=== PATIENT | female | born 1960 | race Asian ===

== ENCOUNTER 2018-01-30 11:48 | Emergency (ER) | payer OTHER, SELFPAY ==
[2018-01-30 11:54] VITALS: BP 147/84; PULSE 80; RESP 14; TEMP 36.7; O2SAT 100
--- NOTE | 2018-01-30 12:16 | ED.FEMALEGU ---
HPI - Female Genitourinary <LISA Rodriguez-BC - Last Filed: 01/30/18 14:20> General Chief complaint: Urogenital-Female Stated complaint: States UTI Time Seen by Provider: 01/30/18 12:04 Source: patient Mode of arrival: ambulatory Limitations: no limitations History of Present Illness HPI Narrative: Patient is a 57-year-old female nonsmoker with a history of hypertension hypothyroid who presents with a chief complaint of UTI symptoms. She states that she had urinary urgency frequency dysuria starting yesterday. She denies any fevers but complains of nausea. She denies any vomiting or diarrhea. She denies any abdominal pain vaginal discharge or STI concerns. She states she has a history of UTIs and took an old Macrobid from a prescription she did not finish. 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 She states she drank 3 gal of water with cranberry juice. Related Data Home Medications Medication Instructions Recorded Confirmed levothyroxine [Synthroid] 150 mcg PO QAM #0 06/04/16 aspirin 81 mg PO QDAY #0 01/02/17 lisinopril 5 mg PO QDAY #0 01/02/17 Previous Rx's Medication Instructions Recorded ciprofloxacin HCl [Cipro] 500 mg PO BID #14 tab 01/02/17 Allergies Allergy/AdvReac Type Severity Reaction Status Date / Time No Known Drug Allergies Allergy Verified 01/30/18 11:56 Review of Systems <LISA Rodriguez- - Last Filed: 01/30/18 14:20> Review of Systems GENERAL: Denies chills, fatigue, malaise, fever, sweats. HEENT: Denies sinus pain, ear pain, sore throat, difficulty swallowing, dizziness. RESPIRATORY: Denies dyspnea, cough, wheezing, hemoptysis, sputum. CARDIOVASCULAR: Denies chest pain, palpitations, orthopnea, edema, GASTROINTESTINAL: Denies nausea, vomiting, abdominal pain, diarrhea, constipation, melena. : See HPI MUSCULOSKELETAL: denies weakness, joint pain, or bony pain SKIN: Denies rash, skin lesions, or other NEUROLOGIC: Denies weakness, headache, numbness, change in speech, confusion, seizures, incoordination. PSYCHIATRIC: No concerning psychosocial issues. 12 point review of systems is negative except for those stated above Exam <TAMARA Rodriguez - Last Filed: 01/30/18 14:20> Narrative Exam Narrative: GENERAL: This is a well-nourished, well-developed patient, in no acute distress HEAD: Atraumatic. Normocephalic. No temporal or scalp tenderness. EYES: Pupils equal round and reactive. Extraocular motions intact. No scleral icterus. No injection or drainage. ENT: Nose without bleeding, purulent drainage or septal hematoma. Throat without erythema, tonsillar hypertrophy or exudate. Uvula midline. Airway patent. NECK: Trachea midline. No JVD or lymphadenopathy. Supple, nontender, no meningeal signs. CARDIOVASCULAR: Regular rate and rhythm without murmurs, gallops, or rubs. RESPIRATORY: Clear to auscultation. Breath sounds equal bilaterally. No wheezes, rales, or rhonchi. No cough on exam. No increased respiratory effort. GASTROINTESTINAL: Abdomen soft, nondistended. No hepato-splenomegaly, or palpable masses. No guarding. Diffuse suprapubic tenderness to palpation. EXTREMITIES: No clubbing, cyanosis, or edema. No joint tenderness, effusion, or edema noted. BACK: Nontender without deformity or crepitance. No flank tenderness. No CVA tenderness bilaterally. NEURO: AOx3. SKIN: No rash or erythema. Initial Vital Signs Initial Vital Signs: Vital Signs Temperature 98.0 F 01/30/18 11:54 Pulse Rate 80 01/30/18 11:54 Respiratory Rate 14 01/30/18 11:54 Blood Pressure 147/84 H 01/30/18 11:54 Pulse Oximetry 100 01/30/18 11:54 <Imelda Noel DO - Last Filed: 01/30/18 19:03> Initial Vital Signs Initial Vital Signs: Vital Signs Temperature 98.0 F 01/30/18 11:54 Pulse Rate 80 01/30/18 11:54 Respiratory Rate 14 01/30/18 11:54 Blood Pressure 147/84 H 01/30/18 11:54 Pulse Oximetry 100 01/30/18 11:54 Course <TAMARA Rodriguez - Last Filed: 01/30/18 14:20> Orders Ordered: ED Orders 01/30/18 12:00 Urine Microscopic Stat 01/30/18 12:33 Urine Culture Stat Vital Signs - 8 hr 01/30/18 11:54 01/30/18 13:26 Temperature 98.0 F Pulse Rate 80 72 Respiratory Rate 14 14 Blood Pressure 147/84 H Blood Pressure [Left Arm] 122/78 Pulse Oximetry 100 98 <Imelda Noel DO - Last Filed: 01/30/18 19:03> Orders Ordered: ED Orders 01/30/18 12:00 Urine Microscopic Stat 01/30/18 12:33 Urine Culture Stat Vital Signs - 8 hr 01/30/18 11:54 01/30/18 13:26 Temperature 98.0 F Pulse Rate 80 72 Respiratory Rate 14 14 Blood Pressure 147/84 H Blood Pressure [Left Arm] 122/78 Pulse Oximetry 100 98 MDM - Female Genitourinary <LISA Rodriguez-BC - Last Filed: 01/30/18 14:20> Lab Data Lab Results 01/30/18 Range/Units 12:00 Urine RBC 1-5/hpf (0-5/HPF) Urine WBC 1-5/hpf (0-5/HPF) Ur Squamous Epith Cells 0-1 /hpf Urine Bacteria Occasional (0-1) (None) Ur Culture Indicated? Cult not indicated Micro UA Comment Not Reportable Urine Dip Bedside Urine Glucose Negative Bedside Urine Bilirubin - Negative Bedside Urine Ketone - Negative Urine Specific [place] 1.010 Bedside Urine Occult Blood ++ Bedside Urine pH 6.0 Bedside Urine Protein - Negative Bedside Urine Urobilinogen - Negative Bedside Urine Nitrite - Negative Bedside Urine Leukocytes - Negative Esterase MDM Narrative Medical decision making narrative: Patient is a 57-year-old female presents with UTI symptoms. However her urine is clean per lab. This may be because she pushed fluid and took a dose of antibiotics at home. I had a long discussion with her regarding taking the entire dose of antibiotics when she has a prescription. I did order a urine culture, to evaluate for urine grows anything. I am not going to order any antibiotics at this time given her clean lab results. Discussed return precautions of fever, flank pain vomiting or diarrhea. Encourage follow-up by her primary care provider. Patient was nontoxic and hemodynamically stable throughout her stay in the emergency department. <Imelda Noel DO - Last Filed: 01/30/18 19:03> Lab Data Lab Results 12/21/18 Range/Units 12:00 Urine RBC 1-5/hpf (0-5/HPF) Urine WBC 1-5/hpf (0-5/HPF) Ur Squamous Epith Cells 0-1 /hpf Urine Bacteria Occasional (0-1) (None) Ur Culture Indicated? Cult not indicated Micro UA Comment Not Reportable Urine Dip Bedside Urine Glucose Negative Bedside Urine Bilirubin - Negative Bedside Urine Ketone - Negative Urine Specific [place] 1.010 Bedside Urine Occult Blood ++ Bedside Urine pH 6.0 Bedside Urine Protein - Negative Bedside Urine Urobilinogen - Negative Bedside Urine Nitrite - Negative Bedside Urine Leukocytes - Negative Esterase Discharge Plan Departure Patient Disposition: Home Clinical Impression: Dysuria Discharge Date/Time: 01/30/18 13:29 Interventions: ED Discharge Assessment Last Done: 01/30/18 13:28 Instructions: DI for Dysuria -- Adult Activity Restrictions/Additional Instructions: Your urine had no signs of infection today. However given your symptoms, we are doing a urine culture to make sure it does not grow any bacteria. If it does grow bacteria, you will receive a phone call in a few days. In the meantime, please push fluids. Follow-up with primary care provider if necessary. Please be evaluated if you have any fever, vomiting or diarrhea or flank pain. Prescriptions: No Action levothyroxine [Synthroid] 150 MCG tablet 150 mcg PO QAM Qty: 0 RF: 0 aspirin 81 MG tablet,delayed release (DR/EC) 81 mg PO QDAY Qty: 0 RF: 0 lisinopril 5 MG tablet 5 mg PO QDAY Qty: 0 RF: 0 ciprofloxacin HCl [Cipro] 500 MG tablet 500 mg PO BID Qty: 14 RF: 0 Referrals: Camilla Manrique PA-C [Non-Staff] - <Imelda Noel DO - Last Filed: 01/30/18 19:03> Cosign ED Attending Varinderature Attestation: I was immediately available in the department for consultation. This documentation has been reviewed and I agree with assessment and plan. Supervised by Imelda Noel DO
[2018-01-30 12:51] LABS: Bacteria Urine Occasional (0-1); Culture Indicated Urine Cult Not Indicated; RBC Urine 1-5/HPF (0-5/HPF); Squamous Epithelial Cell Urine 0-1 /HPF; WBC Urine 1-5/HPF (0-5/HPF)
[2018-01-30 13:26] VITALS: BP 122/78; PULSE 72; RESP 14; O2SAT 98
== END 2018-01-30 13:29 | disposition home or self-care (01) ==
PROVIDERS: Emergency Provider Nurse Practitioner Family
DX: R30.0 Dysuria (principal)
CPT/HCPCS: 81003; 81015; 87086; 99282; 99283

== ENCOUNTER → 2018-09-04 07:55 | Outpatient (CLI) | payer OTHER, SELFPAY ==
--- NOTE | 2018-09-04 08:03 | DI.CT.S_ITS ---
PROCEDURE: CT ABDOMEN PELVIS WO CON INDICATIONS: HISTORY OF UTI TECHNIQUE: Noncontrast 5 mm thick sections acquired from the diaphragms to the symphysis. 5 mm thick coronal and sagittal reformats were then performed. For radiation dose reduction, the following was used: automated exposure control, adjustment of mA and/or kV according to patient size. COMPARISON: None. FINDINGS: Image quality: Excellent. Lung bases: Lung bases are clear. Heart size is normal. Urinary system: Both kidneys are normal in size. No kidney stones. No hydronephrosis or perinephric fat stranding. Both ureters appear non-dilated throughout their expected courses. Bladder wall thickness is normal; no calcified bladder stones. Other solid organs: Liver is normal in size. Gallbladder appears normal. Pancreas is normal in contours. Spleen is normal in size. No adrenal nodules. Peritoneum and bowel: Unenhanced bowel loops demonstrate normal wall thickness and caliber. No free fluid or air. Nodes and vessels: No retroperitoneal or mesenteric adenopathy by size criteria. Aorta and inferior vena cava are normal in caliber. Abdominal wall: No ventral hernias. Pelvis: No free pelvic fluid. No inguinal hernias or adenopathy. Normal appendix right lower quadrant. Bones: No suspicious bony lesions. No vertebral body compression fractures. IMPRESSION: No hydronephrosis or nephrolithiasis. Source of chronic urinary tract infection is not seen. Dictated by: Arvin Carrillo M.D. on 09/04/2018 at 12:12 Approved by: Arvin Carrillo M.D. on 09/04/2018 at 12:13
== END ==
PROVIDERS: Visit Provider Urology
DX: Z87.440 Personal history of urinary (tract) infections (principal)
CPT/HCPCS: 74176

== ENCOUNTER 2020-02-06 20:56 | Emergency (ER) | payer OTHER, SELFPAY ==
[2020-02-06 21:02] VITALS: BP 203/89; PULSE 82; RESP 18; TEMP 36.9; O2SAT 99
--- NOTE | 2020-02-06 21:08 | ED.FEMALEGU ---
HPI - Female Genitourinary General Chief complaint: Urogenital-Female Stated complaint: thinks she has UTI Time Seen by Provider: 02/06/20 21:02 Source: patient Mode of arrival: Ambulatory History of Present Illness HPI Narrative: 59-year-old woman with a history of prior bladder infections and hypertension presents with 12 hours of increasing dysuria and now gross hematuria. She describes no vaginal discharge, fever, cough, wheeze, abdominal pain, flank pain, vomiting, diarrhea, chest pain, palpitations, edema or rashes. Related Data Home Medications Medication Instructions Recorded Confirmed levothyroxine [Synthroid] 150 mcg PO QAM #0 06/04/16 aspirin 81 mg PO QDAY #0 01/02/17 lisinopril 5 mg PO QDAY #0 01/02/17 Previous Rx's Medication Instructions Recorded ciprofloxacin HCl [Cipro] 500 mg PO BID #14 tab 01/02/17 sulfamethoxazole-trimethoprim 1 tab PO BID #6 tab 02/06/20 [Bactrim DS] Allergies Allergy/AdvReac Type Severity Reaction Status Date / Time No Known Drug Allergies Allergy Verified 01/30/18 11:56 Review of Systems Review of Systems ROS Unobtainable: All systems reviewed & are unremarkable except as noted in HPI and below Patient History Medical History Hypertension Hypothyroid alcohol intake frequency: 0-2 drinks per day Substance Use Type: does not use Exam Narrative Exam Narrative: General: Alert appropriate in no acute distress Respiratory: Able to speak in full sentences, no obvious respiratory distress Skin: No obvious rashes, warm and dry Abdomen: Mild suprapubic tenderness, no flank pain Neurologic: Grossly intact no obvious asymmetries or abnormalities Psych: appropriate insight and affect, cooperative Initial Vital Signs Initial Vital Signs: Vital Signs Temperature 98.4 F 02/06/20 21:02 Pulse Rate 82 02/06/20 21:02 Respiratory Rate 18 02/06/20 21:02 Blood Pressure 203/89 H 02/06/20 21:02 Pulse Oximetry 99 02/06/20 21:02 Course Orders Ordered: ED Orders 02/06/20 21:10 Urine Microscopic Stat Discontinued Medications Phenazopyridine HCl (Phenazopyridine 100 Mg Prepack) 1 bottle MISC SEEINSTR ONE Stop: 12/27/20 21:20 Trimethoprim/Sulfamethoxazole (Trimeth/Sulfa 160/800 (Ds) Tablet) 1 tab PO NOW ONE Stop: 02/06/20 21:20 Vital Signs Vital signs: Vital Signs - 8 hr 02/06/20 21:02 Temperature 98.4 F Pulse Rate 82 Respiratory Rate 18 Blood Pressure 203/89 H Pulse Oximetry 99 MDM - Female Genitourinary Lab Data Attestation: I reviewed the patient's lab results. Lab results narrative: Urine dip shows leukocyte esterase, protein, blood. Urine itself is slightly cloudy and bloody. Labs: Urine Dip Bedside Urine Glucose Negative Bedside Urine Bilirubin - Negative Bedside Urine Ketone - Negative Urine Specific [place] 1.005 Bedside Urine Occult Blood +++ Bedside Urine pH 7.0 Bedside Urine Protein + 30 Bedside Urine Urobilinogen - Negative Bedside Urine Nitrite - Negative Bedside Urine Leukocytes + 70 Esterase MDM Narrative Medical decision making narrative: Signs and symptoms are consistent with a simple bladder infection, no sepsis and no pyelonephritis. Will place her on 3 days of Septra with 1st dose given in the emergency department and a couple of days of Pyridium for bladder spasm pain. She is safe for home discharge Discharge Plan Departure Patient Disposition: Home Clinical Impression: Urinary tract infection Qualifiers: Urinary tract infection type: acute cystitis Hematuria presence: with hematuria Qualified Code(s): N30.01 - Acute cystitis with hematuria Instructions: DI for Urinary Tract Infection (UTI) Activity Restrictions/Additional Instructions: Thank you for coming in today It does look like you have a bladder infection. I have given you a dose of Septra/Bactrim/trimethoprim sulfamethoxazole here in the emergency department. I have given you a prescription for 3 additional days to take it morning and evening. For the bladder pain and spasm you can use the Pyridium Your blood pressure was noted to be relatively high in the emergency department today. Please continue to take your lisinopril and review blood pressure is well as medication dosing with your primary care physician in the near future. If your developing increasing pain inability to urinate, flank pain, fevers, vomiting or other worsening symptoms please return to the emergency department Prescriptions: New sulfamethoxazole-trimethoprim [Bactrim DS] 800-160 mg tablet 1 tab PO BID Qty: 6 RF: 0 No Action levothyroxine [Synthroid] 150 MCG tablet 150 mcg PO QAM Qty: 0 RF: 0 aspirin 81 MG tablet,delayed release (DR/EC) 81 mg PO QDAY Qty: 0 RF: 0 lisinopril 5 MG tablet 5 mg PO QDAY Qty: 0 RF: 0 ciprofloxacin HCl [Cipro] 500 MG tablet 500 mg PO BID Qty: 14 RF: 0
[2020-02-06 21:27] LABS: Bacteria Urine Few (2-10); Culture Indicated Urine Specimen Cultured; RBC Urine 5-10/HPF (0-5/HPF); WBC Urine 5-10/HPF (0-5/HPF)
[2020-02-06] MEDS: PHENAZOPYRIDINE 100 MG PREPACK 1 BOTTLE MISC (21:28)
[2020-02-06] MEDS: TRIMETH/SULFA 160/800 (DS) TABLET 1 TAB PO (21:28)
== END 2020-02-06 21:30 | disposition home or self-care (01) ==
PROVIDERS: Emergency Provider Emergency Medicine
DX: N30.01 Acute cystitis with hematuria (principal); R30.0 Dysuria
CPT/HCPCS: 81003; 81015; 87077; 87086; 87186; 99281; 99283

== ENCOUNTER 2021-12-11 21:34 | Emergency (ER) | payer OTHER, SELFPAY ==
[2021-12-11 21:56] VITALS: BP 172/81; PULSE 83; RESP 16; TEMP 37; O2SAT 99; BMI 22.8
[2021-12-11 22:16] LABS: Appearance Urine UA SL CLOUDY; Bilirubin Urine UA NEGATIVE (NEGATIVE); Color Urine UA RED; Glucose Urine UA NEGATIVE (Negative); Ketones Urine UA TRACE (NEGATIVE); Leukocyte Esterase Urine UA 2+ (NEGATIVE); Nitrite Urine UA NEGATIVE (Negative); Occult Blood Urine UA 3+ (Negative); Protein Urine UA 2+ (Negative); Urobilinogen Urine UA 0.2 E.U./dL (0.2)
[2021-12-11 22:39] LABS: pH Urine UA 5.5 (4.5-8.0)
[2021-12-11 22:40] LABS: RBC Urine 30-100/HPF (0-5/HPF)
[2021-12-11 22:41] LABS: Bacteria Urine Few (2-10); Culture Indicated Urine Specimen Cultured; Squamous Epithelial Cell Urine 0-1 /HPF (0-5/HPF); WBC Urine 30-100/HPF (0-5/HPF)
== END 2021-12-12 01:01 | disposition left against medical advice (07) ==
PROVIDERS: Emergency Provider Emergency Medicine; PCP Physician Assistant Medical
DX: R31.9 Hematuria, unspecified (principal)
CPT/HCPCS: 81001; 87077; 87086; 87186; 99281